=== PATIENT | female | born 1950 ===

== ENCOUNTER 2017-10-14 01:10 | Observation (INO) | payer MEDICARE, BC ==
[2017-10-13 14:52] LABS: INR 0.97
[~2017-10-14] VITALS: Ht 175.3 cm; Wt 83.5 kg
[2017-10-14] VITALS (13 sets, daily range): BP systolic 98–146; BP diastolic 57–80
[~2017-10-14 01:10] MED LIST: BIOT300T6 PO; CALC-488 PO; MAGNESIUM PO; MULT-19; VALA100059 PO; VALA500T63 PO
--- NOTE | 2017-10-14 06:50 | LEVENE H&P ---
DATE OF ADMISSION: October 14, 2017 IDENTIFICATION/CHIEF COMPLAINT The patient is a 66-year-old woman with a chief complaint of left knee pain. HISTORY OF PRESENT ILLNESS The patient has a longstanding history of knee arthritis, progressively painful and debilitating, refractory to conservative care. Surgery is indicated to relieve symptoms after failure of nonoperative measures. PAST MEDICAL HISTORY Notable for generally excellent health. ALLERGIES She has only hay fever allergies, no known drug allergies. CURRENT MEDICATIONS 1. Valacyclovir as needed. 2. Aleve as needed. 3. Multiple vitamins. PAST SURGICAL HISTORY Notable for tubal ligation, tonsillectomy and foot surgery. FAMILY HISTORY Notable for father with cancer, father and two brothers with history of coronary artery disease and myocardial infarction and multiple relatives with arthritis. SOCIAL HISTORY Negative for tobacco and alcohol use. REVIEW OF SYSTEMS Negative. PHYSICAL EXAMINATION GENERAL: This is a well-developed, well-nourished female who appears stated age. HEENT: Normocephalic, atraumatic. NECK: Supple. LUNGS: Clear. HEART: Regular. ABDOMEN: Soft. ORTHOPEDIC EXAMINATION: The left knee has severe crepitus. She has an effusion present, stiff at the end range. Skin is intact. Neurovascular function is intact. Gross stability is good. RADIOGRAPHIC DATA Radiographs demonstrate end-stage arthritis. ASSESSMENT Left knee degenerative joint disease, refractory to conservative care. PLAN Per patient request, we are going to proceed with total knee arthroplasty. Nature of the procedure, risks, benefits, the anticipated rehabilitative course were reviewed. The risks include, but are not limited to, , major medical or anesthetic complication, infection, neurovascular injury, blood transfusion, stiffness, scarring, fracture, tendon rupture, instability, implant loosening, migration or failure, persistent recurrent pain, need for additional surgery, and other unforeseen. She understands and wishes to proceed. Signed permit was placed in the chart, no guarantees given or implied. [place]
[2017-10-14] MEDS: NORMOSOL R SOLN(*) 1000 ML BAG 1,000 ML IV PRN ×2 (09:04→14:23)
[2017-10-14] MEDS ORDERED: LIDOCAINE MPF 1% 5 ML VIAL ONE (09:19)
[2017-10-14] MEDS ORDERED: ONDANSETRON 4 MG/2 ML VIAL ONE (09:19)
[2017-10-14] MEDS ORDERED: PROPOFOL EMUL(*) 10MG/ML 20 ML 20 ML ONE (09:19)
[2017-10-14] MEDS ORDERED: METOCLOPRAMIDE 10 MG/2 ML SDV ONE (09:19)
[2017-10-14] MEDS ORDERED: DEXAMETHASONE SOD 4 MG/ML VIAL ONE (09:20)
[2017-10-14] MEDS ORDERED: ceFAZolin(*) 2GM/D5W 50ML 50 ML IVPB ONE (10:45)
[2017-10-14] MEDS ORDERED: MIDAZOLAM 2 MG/2 ML VIAL IVP PRN (10:45)
[2017-10-14] MEDS ORDERED: cloNIDine EPIDUR INJ 100MCG/ML 40 MCG, ROPIVACAINE 0.5% 20 ML VIAL 25 ML, EPINEPHrine H... INJ ONE (10:45)
[2017-10-14] MEDS ORDERED: TRANEXAMIC AC 1000 MG/10ML SDV 1,000 MG in DEXTROSE 5% 50 ML BAG 50 ML IV ONE (10:45)
[2017-10-14] MEDS ORDERED: LIDOCAINE/SOD BICARB 8.4% SYR ID ONE (10:45)
[2017-10-14] MEDS ORDERED: FAMOTIDINE 20 MG TAB PO ONE (10:45)
[2017-10-14] MEDS ORDERED: MORPHINE PF 5 MG/10 ML AMP ONE (11:46)
[2017-10-14] MEDS ORDERED: fentaNYL CITR 100 MCG/2 ML AMP ONE (11:47)
[2017-10-14] MEDS ORDERED: LACTATED RINGER 3000 ML BAG IR ONE (13:32)
[2017-10-14] MEDS ORDERED: FLUSH 10 ML SYR IVP PRN (14:30)
[2017-10-14] MEDS ORDERED: NORMOSOL R SOLN(*) 1000 ML BAG 1,000 ML IV PRN (14:30)
[2017-10-14] MEDS ORDERED: BENZOCAINE/MENTHOL 1 EACH LOZG PO PRN (14:30)
[2017-10-14] MEDS ORDERED: ACETAMINOPHEN 325 MG TAB PO PRN (14:30)
[2017-10-14] MEDS ORDERED: diphenhydrAMINE 50 MG/ML VIAL IVP PRN (14:30)
[2017-10-14] MEDS ORDERED: MAGNESIUM HYDROXIDE* 30ML UDCP PO PRN (14:30)
[2017-10-14] MEDS ORDERED: ZOLPIDEM TARTRATE 5 MG TAB PO PRN (14:30)
[2017-10-14] MEDS ORDERED: diphenhydrAMINE 25 MG CAP PO PRN ×2 (14:30→14:35)
[2017-10-14] MEDS ORDERED: BISACODYL 10 MG SUPP PR PRN (14:30)
[2017-10-14] MEDS ORDERED: NALOXONE HCL 0.4 MG/ML VIAL IVP PRN ×2 (14:35)
[2017-10-14] MEDS ORDERED: ONDANSETRON 4 MG/2 ML VIAL IVP PRN (14:35)
[2017-10-14] MEDS ORDERED: NALTREXONE HCL 50 MG TAB PO PRN (14:35)
[2017-10-14] MEDS ORDERED: METOCLOPRAMIDE 10 MG/2 ML SDV IVP PRN (14:35)
[2017-10-14] MEDS ORDERED: NALBUPHINE HCL 10 MG/ML AMP IVP PRN (14:35)
--- NOTE | 2017-10-14 14:35 | RADIOLOGY IMAGING REPORT ---
FACILITY: [facility] PATIENT NAME: Jessica Hairston : 1950 MR: [id number] V: [id number] EXAM DATE: ORDERING PHYSICIAN: GUIDO BEARDEN TECHNOLOGIST: Location: [facility] [place] Patient: Jessica Hairston : 1950 Visit/Account:[id number] Date of Sevice: 10/14/2017 Left knee, two views. HISTORY: Left total knee arthroplasty. COMPARISON: None. The articular surfaces of the distal femur, proximal tibia, and patella have been resected and replac ed with prosthetic components. The components have been secured with cement. Alignment is unremarkabl e. Air is present in the soft tissues. Skin clips are present anteriorly. Slight lucencies are pre sent along the femoral component which is probably within normal limits. IMPRESSION: Unremarkable knee replacement. Report Dictated By: Carlos Dill MD at 10/14/2017 2:30 PM Report E-Signed By: Carlos Dill MD at 10/14/2017 2:32 PM WSN:[email or web address]
[2017-10-14] MEDS: PROMETHAZINE 25 MG/ML 1 ML AMP IVP PRN (15:30)
--- NOTE | 2017-10-14 16:50 | Hospitalist Consultation ---
History of Present Illness Requesting Physician Guido Bearden MD Reason for Consult s/p L-TKA and medical management Chief Complaint Nausea, dizziness and cloudiness after surgery History of Present Illness Mrs. Hairston is a 66-year-old woman with a longstanding history of knee arthritis , progressively painful and debilitating, refractory to conservative care. Surgery is indicated to relieve symptoms after failure of nonoperative measures. She underwent L-TKA by Dr. Bearden today. She tolerated the anesthesia and surgical procedure. I was asked to evaluate this patient for her medical problems during this hospital stay. She c/o Nausea, dizziness and cloudiness. She is hemodynamically stable. She denies any other medical condition except Herpes and she takes Voltrex as needed. History Home Meds Reported Medications Valacyclovir Hcl (VALACYCLOVIR) 1,000 Mg Tablet, 1000 MG PO PRN 10/07/17 [Magnesium] No Conflict Check, 1000 TAB PO QDAY 10/07/17 Biotin (BIOTIN) 300 Mcg Tablet, 500 MCG PO QDAY 10/07/17 Calcium Carbonate (CALCIUM CARBONATE) 500 Mg Tablet, 500 MG PO 10/07/17 Multivits-Min/Iron/FA/Lutein (Centrum Silver Women Tablet) 1 Each Tablet, QDAY 10/07/17 Discontinued Reported Medications Valacyclovir Hcl (VALACYCLOVIR) 500 Mg Tablet, 500 MG PO PRN 10/07/17 Allergies: Coded Allergies: grass pollen (Verified Allergy, Unknown, 10/07/17) Patient History: FH: arthritis MOTHER FH: cancer FATHER, Onset:Unknown FH: heart attack BROTHER OR SISTER Hx Smoking: No Smoking Status: Never Smoker Caffeine Intake: Coffee, Soda Caffeine/Cups Per Day: 2 CPD Hx Alcohol Use: No Hx Substance Use Disorder: No Review of Systems Constitutional: Night Sweats, No Fever, No Chills Neurological: No Confusion, No Weakness, No Dizziness Eyes: No Vision Change ENT: No Sinus Congestion, No Sore Throat Cardiovascular: No Chest Pain, No Palpitations Respiratory: No Shortness of Breath, No Cough Gastrointestinal: Nausea, No Vomiting, No Diarrhea, No Constipation, No Abdominal Pain Genitourinary: No Dysuria, No Hematuria Musculoskeletal: Pain, Impaired Mobility, No Sprain, No Strain Psychiatric: No Depression, No Anxiety Exam Vital Signs Vital Signs Date Time Temp Pulse Resp B/P (MAP) Pulse Ox O2 Delivery O2 Flow Rate FiO2 10/14/17 16:00 69 123/72 (89) 98 10/14/17 15:08 Nasal Cannula 2.0 10/14/17 14:58 12 10/14/17 09:01 96.9 General Appearance: Alert, Awake, No Acute Distress, Afebrile Neuro: No Gross deficits Eyes: PERRLA ENT: Normal Cardiovascular: Normal Rhythm & Peripheral Pulses Respiratory: No Respiratory Distress GI: Abd Soft and Non-Tender : Normal Extremities: Other (LLE with tenderness and decrease ROM) Integumentary: Skin Intact without Lesion / Mass Psych: Alert & Oriented X3, Appropriate Mood & Affect Medical Decision Making Pre-Admit Course Medical Record Review: Yes Assessment and Plan Problems: (1) Nausea Status: Acute Assessment & Plan: Post op nausea and dizziness I will use antiemetic to control her nausea (2) S/P total knee arthroplasty Status: Acute Assessment & Plan: Management per surgery and PT ROM exercises Aspirin 325mg po qd for DVTP Central Venous Access Medical Necessity for Access: IV Access Time Spent on Plan of Care: < 30 min Copies to: GUIDO BEARDEN MD Venous Thromboembolism VTE Risk Physician Assess for VTE Risk: Yes Patient's VTE Risk: Low VTE Diagnostic Test 2 Days Prior to Admit: No Antithrombotics Is Pt On Any Antithrombotics?: No Problem Qualifiers (1) S/P total knee arthroplasty: Laterality: left Qualified Codes: Z96.652 - Presence of left artificial knee joint PANKAJ CABA MD Oct 14, 2017 16:50
[2017-10-14] MEDS: CELECOXIB 200 MG CAP PO SCH (17:08)
[2017-10-14] MEDS: ceFAZolin 1 GM VIAL IVP SCH (19:53)
--- NOTE | 2017-10-14 21:30 | OPERATIVE REPORT 1 ---
EVENT DATE: October 14, 2017 SURGEON: Balbir Gonzales MD ANESTHESIOLOGIST: Edin Neal MD ANESTHESIA: General plus spinal. GRADING SUPERVISOR: BARBARA Kaye PREOPERATIVE DIAGNOSIS Left knee degenerative joint disease. POSTOPERATIVE DIAGNOSIS Left knee degenerative joint disease. PROCEDURE PERFORMED Left total knee arthroplasty. ESTIMATED BLOOD LOSS Minimal. DRAINS None. SPECIMENS None. COMPLICATIONS None apparent. TOURNIQUET TIME 45 minutes. IMPLANTS USED [employer] knee system, a 4 left PS femur, a 5 standard tibial baseplate , a 33 mm universal cemented all-polyethylene patellar button, and an 11 mm PF tibial tray insert, and polyethylene X3 INDICATIONS Jessica has intractable pain and disability related to end-stage knee arthritis. Surgery is indicated to relieve symptoms after failure of nonoperative measures. DESCRIPTION OF PROCEDURE The patient was taken to the operating room. She was placed supine on the operating table. A spinal block was administered by the anesthesiologist. General anesthesia was induced. Antibiotics and TXA were administered IV. The left lower extremity was prepped and draped in the usual sterile fashion for orthopedic surgery. The limb was exsanguinated with an Esmarch bandage. The tourniquet was inflated to 250 mmHg. A midline longitudinal incision was made and carried down through the skin and subcutaneous tissue to the extensor mechanism. A full-thickness flap was developed far enough medially to allow a medial parapatellar arthrotomy be performed. The patella was everted, and the knee was brought into the flexed position. The fat pad, the anterior horn to the menisci, and the cruciate ligaments were debrided. A subperiosteal capsular release was performed circumferentially 1 cm around the upper plateau. A step drill was used to enter the distal femur. A 10-inch long alignment guide was used to engage the isthmus. The cut was set for 6 degrees of valgus relative to the anatomic axis. The 10 mm resection block was applied and pinned. Cuts were made on the distal femur with an oscillating saw. The AP resection guide was applied to the distal femoral cut and positioned for 3 degrees of external rotation relative to the posterior condyles. A size 4 was optimal without risk of notching. The four-in-one cutting block was applied. Anterior, posterior, posterior chamfer, and anterior chamfer cuts were made respectively. The PS block was applied and centered. Medial and lateral bone was removed from the box. The trial femur had nice [id number] fit. Attention was turned to the tibial preparation. The extramedullary alignment guide was applied and positioned for varus, valgus, posterior slope, and rotation. This was set to resect 9 mm from the relatively intact lateral tibial plateau. It was dropped another millimeter to assure an adequate cut. The block was pinned. Extramedullary alignment check was made. The cut was made with an oscillating saw. Gaps were balanced and symmetric with no additional releases required. The size 5 tibial baseplate provided optimum bony coverage without soft tissue overhang. It was inserted along with a trial liner and a trial femur. The knee was brought to full extension. The patella was everted to confirm a starting thickness of 20 to a residual 14 with a patellar clamp and an oscillating saw. A 33 provided optimal bony coverage without soft tissue overhang. Lug holes were drilled. The patella tracked nicely with the no-touch technique. Final tibial preparation consisted of assuring appropriate rotational and translational position of the component. The box was reamed, the fin was punched, and the surfaces were copiously lavaged. A pain cocktail was infiltrated throughout the wound. A bone block was placed in the femoral tunnel. Mixed polymethyl methacrylate was made, and the components were cemented in a single stage. When the cement was fully polymerized, the tourniquet was deflated. Hemostasis was assured. The wound was copiously lavaged. All loose debris was removed. The 11 PS tibial tray liner filled up the gap ideally, allowing the knee to drop to full extension without hyperextension, providing optimal soft tissue tension and stability. This was locked into the baseplate. The joint was reduced. The arthrotomy was closed with in flexion with #2 Ethibond, the subcutaneous tissue with 3-0 Vicryl , and the skin with surgical ramesh with Xeroform and 4 x 4's in a dry, sterile dressing and compression wrap. The patient was awakened from anesthesia and taken to the recovery room in stable condition having tolerated the procedure well. The plan is for standard TKA rehab protocol. [facility]
[2017-10-15] VITALS: BP 98/58
[2017-10-15 01:00] VITALS: BP 99/56
[2017-10-15] MEDS: ceFAZolin 1 GM VIAL IVP SCH ×2 (03:50→12:09)
[2017-10-15] MEDS: APAP/HYDROCODONE 325/7.5 TAB PO PRN ×5 (07:12→22:42)
[2017-10-15] MEDS: CELECOXIB 200 MG CAP PO SCH ×2 (08:09→17:30)
[2017-10-15] MEDS: ASPIRIN 325 MG TAB PO SCH (08:09)
[2017-10-15 08:16] VITALS: BP 122/74
[2017-10-15 09:19] VITALS: BMI 27.2
[2017-10-15 11:14] VITALS: BP 118/66
--- NOTE | 2017-10-15 14:21 | Hospitalist Progress Note ---
Subjective Progress Notes Subjective She denies any problems. Physical Exam Vital Signs Date Time Temp Pulse Resp B/P (MAP) Pulse Ox O2 Delivery O2 Flow Rate FiO2 10/15/17 12:11 93 10/15/17 11:14 98.2 64 16 118/66 (83) Room Air 10/15/17 07:12 0.5 Intake and Output 10/16/17 07:01 Intake Total 360 ml Balance 360 ml Intake Oral 360 ml General Appearance: Alert, Awake Cardiovascular: Regular Rate and Rhythm Respiratory: Clear to Auscultation Assessment and Plan Problems: (1) Nausea Status: Acute Assessment & Plan: Post-op nausea has now resolved. Watch for any recurrent problems. (2) S/P total knee arthroplasty Status: Acute Assessment & Plan: Management per orthopedics. Aspirin 325mg po qd for DVT prophylaxis. Central Venous Access Medical Necessity for Access: IV Access Exam Sepsis Risk: No Definite Risk Problem Qualifiers (1) S/P total knee arthroplasty: Laterality: left Qualified Codes: Z96.652 - Presence of left artificial knee joint DIXON BUSTAMANTE MD Oct 15, 2017 14:21
[2017-10-15 15:37] VITALS: BP 114/69
[2017-10-15] MEDS: DIAZEPAM 5 MG TAB PO PRN (17:30)
[2017-10-15 19:09] VITALS: BP 108/63
[2017-10-15] MEDS ORDERED: MORPHINE 2 MG/ML SYR IVP PRN (20:30)
[2017-10-15] MEDS ORDERED: KETOROLAC 15 MG/ML VIAL IVP ONE (20:30)
[2017-10-16 02:33] VITALS: BP 115/58
[2017-10-16] MEDS: APAP/HYDROCODONE 325/7.5 TAB PO PRN ×4 (04:54→20:27)
[2017-10-16 08:25] VITALS: BP 116/95
[2017-10-16] MEDS: ASPIRIN 325 MG TAB PO SCH (08:26)
[2017-10-16] MEDS: CELECOXIB 200 MG CAP PO SCH ×2 (08:26→16:43)
[2017-10-16 11:15] VITALS: BP 133/72
[2017-10-16] MEDS: DIAZEPAM 5 MG TAB PO PRN ×2 (14:02→20:26)
--- NOTE | 2017-10-16 14:17 | Hospitalist Progress Note ---
Subjective Progress Notes Subjective Mrs. Hairston is a 66-year-old woman with a longstanding history of knee arthritis , progressively painful and debilitating, refractory to conservative care. Surgery is indicated to relieve symptoms after failure of nonoperative measures. She underwent L-TKA by Dr. Bearden today. She tolerated the anesthesia and surgical procedure. I was asked to evaluate this patient for her medical problems during this hospital stay. She c/o Nausea, dizziness and cloudiness. She is hemodynamically stable. She denies any other medical condition except Herpes and she takes Voltrex as needed. Patient Complains of: Neurological: Weakness, No: Confusion, Dizziness Cardiovascular: No: Chest Pain, Palpitations Respiratory: No: Cough, Congestion, Shortness of Breath Gastrointestinal: No Nausea, No Vomiting Genitourinary: No Dysuria, No Hematuria Musculoskeletal: Pain, No: Sprain, Strain, Impaired Mobility Physical Exam Vital Signs Date Time Temp Pulse Resp B/P (MAP) Pulse Ox O2 Delivery O2 Flow Rate FiO2 10/16/17 11:15 98.0 77 16 133/72 (92) 95 Nasal Cannula 0.5 Intake and Output 10/17/17 07:00 Intake Total 0 ml Balance 0 ml Intake Oral 0 ml # Voids 3 General Appearance: Alert, Awake, No Acute Distress, Afebrile Neuro: No Gross deficits Eyes: PERRLA ENT: Normal Cardiovascular: Regular Rate and Rhythm Respiratory: No Respiratory Distress GI: Soft and Non-Tender Integumentary: Skin Intact without Lesion / Mass Psych: Alert & Oriented X3, Appropriate Mood & Affect Assessment and Plan Problems: (1) Nausea Status: Acute Assessment & Plan: Post-op nausea has now resolved. Watch for any recurrent problems. 2/1: She is medically stable (2) S/P total knee arthroplasty Status: Acute Assessment & Plan: Management per orthopedics. Aspirin 325mg po qd for DVT prophylaxis. 2/1: Management as per surgery and PT. Anticipated d/c in am Central Venous Access Medical Necessity for Access: IV Access Time Spent on Plan of Care: < 30 min Copies to: GUIDO BEARDEN MD Exam Sepsis Risk: No Definite Risk Problem Qualifiers (1) S/P total knee arthroplasty: Laterality: left Qualified Codes: Z96.652 - Presence of left artificial knee joint PANKAJ CABA MD Oct 16, 2017 14:17
[2017-10-16 15:03] VITALS: BP 129/75
[2017-10-16 20:21] VITALS: BP 135/84
[2017-10-16] MEDS: PROMETHAZINE 25 MG/ML 1 ML AMP IVP PRN (20:31)
[2017-10-17 00:03] VITALS: BP 121/60
[2017-10-17] MEDS: APAP/HYDROCODONE 325/7.5 TAB PO PRN (02:35)
[2017-10-17 03:19] VITALS: BP 129/66
[2017-10-17 07:16] VITALS: BP 138/68
[2017-10-17] MEDS ORDERED: ONDA4TAB PO (07:36)
[2017-10-17] MEDS ORDERED: HYDR-4308 PO (07:37)
[2017-10-17] MEDS ORDERED: ASPI-757 PO (07:39)
[2017-10-17] MEDS: ASPIRIN 325 MG TAB PO SCH (08:38)
[2017-10-17] MEDS: CELECOXIB 200 MG CAP PO SCH (08:38)
[2017-10-17] MEDS ORDERED: ONDANSETRON 4 MG ODT TABDP SL ONE (10:20)
[2017-10-17 10:39] VITALS: Ht 175.3 cm; Wt 83.5 kg
--- NOTE | 2017-10-17 16:29 | Hospitalist Progress Note ---
Subjective Progress Notes Subjective Mrs. Hairston is a 66-year-old woman with a longstanding history of knee arthritis , progressively painful and debilitating, refractory to conservative care. Surgery is indicated to relieve symptoms after failure of nonoperative measures. She underwent L-TKA by Dr. Bearden today. She tolerated the anesthesia and surgical procedure. I was asked to evaluate this patient for her medical problems during this hospital stay. She c/o Nausea, dizziness and cloudiness. She is hemodynamically stable. She denies any other medical condition except Herpes and she takes Voltrex as needed. 10/17: She is afebrile, hemodynamically and medically stable to go home today and she is cleared by surgery. Patient Complains of: Neurological: No: Weakness Cardiovascular: No: Chest Pain Respiratory: No: Cough, Shortness of Breath Gastrointestinal: No Nausea, No Vomiting Genitourinary: No Dysuria, No Hematuria Musculoskeletal: No: Pain Physical Exam Vital Signs Date Time Temp Pulse Resp B/P (MAP) Pulse Ox O2 Delivery O2 Flow Rate FiO2 10/17/17 08:02 92 10/17/17 07:20 Room Air 10/17/17 07:16 98.2 69 18 138/68 (91) 10/17/17 03:19 0.5 Intake and Output 10/18/17 07:00 Intake Total 80 ml Balance 80 ml Intake Oral 80 ml # Voids 1 General Appearance: Alert, Awake, No Acute Distress, Afebrile Neuro: No Gross deficits Eyes: PERRLA ENT: Normal Cardiovascular: Regular Rate and Rhythm Respiratory: No Respiratory Distress GI: Soft and Non-Tender Extremities: Other (L-knee with decrease ROM) Psych: Alert & Oriented X3, Appropriate Mood & Affect Assessment and Plan Problems: (1) Nausea Status: Chronic Assessment & Plan: Post-op nausea has now resolved. Watch for any recurrent problems. 10/16: She is medically stable 10/17: D/C plan today (2) S/P total knee arthroplasty Status: Acute Assessment & Plan: Management per orthopedics. Aspirin 325mg po qd for DVT prophylaxis. 10/16: Management as per surgery and PT. Anticipated d/c in am 10/17: She is being d/c'd today and f/u with Dr. Bearden Central Venous Access Medical Necessity for Access: IV Access Time Spent on Plan of Care: < 30 min Copies to: GUIDO BEARDEN MD Exam Sepsis Risk: No Definite Risk Problem Qualifiers (1) S/P total knee arthroplasty: Laterality: left Qualified Codes: Z96.652 - Presence of left artificial knee joint PANKAJ CABA MD Oct 17, 2017 16:29
== END 2017-10-17 08:21 | disposition home health service (06) ==
LOC: OR 01:10 → MED 14:58 → INTOOBSV 14:58
PROVIDERS: ADMIT Orthopaedic Surgery; ATTEND Orthopaedic Surgery
DX: M17.12 Unilateral primary osteoarthritis, left knee (principal); E78.5 Hyperlipidemia, unspecified; I10 Essential (primary) hypertension
CPT/HCPCS: 27447; 36415; 73560; 85610; 86850; 86900; 86901; 96372; 97116; 97161; 97530; A9270; C1713; C1776; G0378; J0171; J0690; J0735; J1100; J1885; J2001; J2250; J2405; J2550; J2704; J2765; J2795; J3010; J7050; J7060; Q0163; J2270

== ENCOUNTER 2018-12-08 01:43 | Observation (INO) | payer MEDICARE, BC ==
--- NOTE | 2018-11-23 09:47 | NUR ---
LAN FROM JAIRO AT [facility], WOULD LIKE SCOPOLAMINE PATCH CALLED IN FOR THIS PT. CALLED INTO [facility] IN [place] UNDER DR. BEARDEN PER JAIRO'S INSTRUCTIONS.
--- NOTE | 2018-12-07 13:57 | LEVENE H&P ---
DATE OF ADMISSION: December 08, 2018 IDENTIFICATION/CHIEF COMPLAINT The patient is a 68-year-old woman with a chief complaint of right knee pain. HISTORY OF PRESENT ILLNESS Patient has a longstanding history of arthritis progressively painful and debilitating and refractor to conservative care. Surgery is indicated to relieve symptoms after failure of nonoperative measures. PAST MEDICAL HISTORY Notable for generally good health. PAST SURGICAL HISTORY 1. Contralateral knee replacement. 2. Tubal ligation. 3. Tonsillectomy. ALLERGIES She has multiple environmental allergens but no drug allergies. CURRENT MEDICATIONS 1. Vitamins. 2. Valtrex as needed for cold sores. FAMILY HISTORY Notable for father with heart disease and cancer. Mother and sister with arthritis. SOCIAL HISTORY Negative for tobacco and alcohol use. REVIEW OF SYSTEMS Notable for migraine headaches. PHYSICAL EXAMINATION GENERAL: Healthy female. HEENT: Normocephalic, atraumatic. NECK: Supple. LUNGS: Clear. HEART: Regular. ABDOMEN: Soft. ORTHOPEDIC EXAMINATION Right knee has an effusion present, stiffened on range. Crepitus is noted. Extensor function is intact. Gross stability is good. Skin is intact. Neurovascular function is intact distally. Radiographs demonstrate end-stage lateral compartment degenerative joint disease. ASSESSMENT Right knee degenerative joint disease progressively painful and debilitating and refractory to conservative care. PLAN Per patient request, we will proceed with total knee arthroplasty. The nature of this procedure, the risks, benefits, the anticipated rehabilitative course were reviewed. Risks include but are not limited to , major medical or anesthetic complication, infection, neurovascular injury, blood transfusion, stiffness, scarring, fracture, tendon rupture, instability, implant loosening, migration or failure, persistent or recurrent pain or symptoms, need for additional surgery and other unforeseen. She understands and wishes to proceed. A signed permit is placed in the chart. No guarantees are given or implied. [facility]ITALAam[facility]
[2018-12-07 15:02] LABS: INR 0.98
[~2018-12-08] VITALS: Ht 176.5 cm; Wt 84.8 kg
[2018-12-08] VITALS (12 sets, daily range): BP systolic 99–148; BP diastolic 60–95
[~2018-12-08 01:43] MED LIST changes: +ACETAMINOPHEN 500 MG TAB PO ONE; +ASPI-757 PO; +CELECOXIB 200 MG CAP PO ONE; +HYDR-654 PO; +ONDA4TAB PO; +PREGABALIN 75 MG CAPSULE PO ONE; +SCOP1PAT16
[2018-12-08] MEDS ORDERED: VANCOMYCIN 1 GM VIAL ONE (07:12)
[2018-12-08] MEDS ORDERED: CELECOXIB 200 MG CAP PO ONE (07:20)
[2018-12-08] MEDS ORDERED: PREGABALIN 75 MG CAPSULE PO ONE (07:20)
[2018-12-08] MEDS ORDERED: ACETAMINOPHEN 500 MG TAB PO ONE (07:20)
[2018-12-08] MEDS ORDERED: APREPITANT 40 MG CAP PO ONE (09:50)
[2018-12-08] MEDS ORDERED: ceFAZolin(*) 2GM/D5W 50ML 50 ML IVPB ONE (10:00)
[2018-12-08] MEDS ORDERED: MIDAZOLAM 2 MG/2 ML VIAL IVP PRN (10:00)
[2018-12-08] MEDS ORDERED: NORMOSOL R SOLN(*) 1000 ML BAG 1,000 ML IV PRN ×2 (10:00→15:40)
[2018-12-08] MEDS ORDERED: FAMOTIDINE 20 MG TAB PO ONE (10:00)
[2018-12-08] MEDS ORDERED: ceFAZolin(*) 1 GM VIAL 1 GM in NS(*) 0.9% 100 ML ADDVANT BAG 100 ML IVPB ONE (10:00)
[2018-12-08] MEDS ORDERED: LIDOCAINE/SOD BICARB 8.4% SYR ID ONE (10:00)
[2018-12-08] MEDS ORDERED: fentaNYL CITR 100 MCG/2 ML AMP ONE ×2 (10:03→14:25)
[2018-12-08] MEDS ORDERED: ONDANSETRON 4 MG/2 ML VIAL ONE (10:04)
[2018-12-08] MEDS ORDERED: LIDOCAINE MPF 1% 5 ML VIAL ONE (10:04)
[2018-12-08] MEDS ORDERED: PROPOFOL EMUL(*) 10MG/ML 20 ML 20 ML ONE ×2 (10:04→13:43)
[2018-12-08] MEDS ORDERED: DEXAMETHASONE SOD 4 MG/ML VIAL ONE (10:04)
[2018-12-08] MEDS ORDERED: KETAMINE HCL 200 MG/20 ML MDV ONE (10:06)
[2018-12-08] MEDS ORDERED: TRANEXAMIC AC 1000 MG/10ML SDV 1,000 MG in DEXTROSE 5% 50 ML BAG 50 ML IV ONE (11:15)
[2018-12-08] MEDS ORDERED: ROPIVACAINE/EPI/CLONIDINE/KET 50 ML SYRINGE INJ ONE (11:15)
[2018-12-08] MEDS ORDERED: PROPOFOL EMUL(*) 10MG/ML 20 ML 60 ML ONE (11:48)
[2018-12-08] MEDS ORDERED: ACETAMINOPHEN 325 MG TAB PO PRN (15:40)
[2018-12-08] MEDS ORDERED: BISACODYL 10 MG SUPP PR PRN (15:40)
[2018-12-08] MEDS ORDERED: diphenhydrAMINE 50 MG/ML VIAL IVP PRN (15:40)
[2018-12-08] MEDS ORDERED: MAGNESIUM HYDROXIDE* 30ML UDCP PO PRN (15:40)
[2018-12-08] MEDS ORDERED: diphenhydrAMINE 25 MG CAP PO PRN (15:40)
[2018-12-08] MEDS ORDERED: BENZOCAINE/MENTHOL 1 EACH LOZG PO PRN (15:40)
[2018-12-08] MEDS ORDERED: FLUSH 10 ML SYR IVP PRN (15:40)
[2018-12-08] MEDS ORDERED: ZOLPIDEM TARTRATE 5 MG TAB PO PRN (15:40)
[2018-12-08] MEDS ORDERED: PROMETHAZINE 25 MG/ML 1 ML AMP IVP PRN (15:40)
--- NOTE | 2018-12-08 15:46 | RADIOLOGY IMAGING REPORT ---
FACILITY: [facility] - [place] PATIENT NAME: Jessica Hairston : 1950 MR: [id number] V: [id number] EXAM DATE: ORDERING PHYSICIAN: GUIDO BEARDEN TECHNOLOGIST: Location: [facility] Patient: Jessica Hairston : 1950 Visit/Account:[id number] Date of Sevice: 12/08/2018 Right knee Indication: Right total knee arthroplasty Comparison: None available Findings: Two views demonstrate anatomic alignment status post right knee arthroplasty. Expected soft tissue c hanges. IMPRESSION: 1. Expected postoperative appearance status post right total knee arthroplasty Report Dictated By: Camden Cooper MD at 12/08/2018 3:40 PM Report E-Signed By: Camden Cooper MD at 12/08/2018 3:41 PM WSN:[email or web address]
--- NOTE | 2018-12-08 16:06 | OPERATIVE REPORT 1 ---
EVENT DATE: December 08, 2018 SURGEON: Balbir Gonzales MD ANESTHESIOLOGIST: Santy Blakely MD ANESTHESIA: General plus spinal. EYE CLINIC MANAGER: Moshe Woody PA-C PREOPERATIVE DIAGNOSIS Right knee degenerative joint disease. POSTOPERATIVE DIAGNOSIS Right knee degenerative joint disease. PROCEDURE PERFORMED Right total knee arthroplasty. ESTIMATED BLOOD LOSS Minimal. DRAINS None. SPECIMENS None. COMPLICATIONS None apparent. TOURNIQUET TIME 44 minutes. IMPLANTS USED Habboathlon knee system with 4 right PS femur, 4 standard tibial baseplate, 33 mm universal, symmetric, all-polyethylene patellar button, 11 mm PS tibial tray liner. Polyethylene is X3. INDICATIONS Jessica has intractable pain and disability related to end-stage knee arthritis. Surgery is indicated to relieve symptoms after failure of nonoperative measures. DESCRIPTION OF PROCEDURE Patient is taken to the operating room and placed supine on the operating table. General anesthesia is induced after spinal block is administered by the anesthesiologist. Antibiotics and TXA are administered IV. Right lower extremity is prepped and draped in the usual sterile fashion for orthopedic surgery. Limb is exsanguinated with an Esmarch bandage. Tourniquet is inflated to 250 mmHg. Midline longitudinal incision is made, carried down through the skin and subcutaneous tissue to the extensor mechanism. Full-thickness flaps are developed far enough medially to allow medial parapatellar arthrotomy be performed. Patella is everted. Knee is brought into flexed position. Fat pad, anterior horns of the menisci, and the cruciate ligaments are debrided. Subperiosteal capsule release is performed 1 cm around the upper plateau to start to balance the knee. A step drill is used to enter the distal femur. The 10-inch long alignment guide is used to engage the isthmus, cut set for 6 degrees of valgus relative to the anatomic axis. The 10 mm resection block is applied, pinned, and cuts made with an oscillating saw. AP sizing guide is applied to the distal femur, positioned for 3 degrees of external rotation relative to the posterior condyles. Although the knee is valgus, there is no hypoplasia of the lateral condyle. The size 4 is optimal without risk of notching. The four-in-one cutting block is applied. Anterior, posterior, posterior chamfer, and anterior chamfer cuts are made respectively. PS block is applied and centered. Medial and lateral bone is removed from the box. Trial femur has nice [id number] fit. Attention is turned to tibial preparation. The extramedullary guide is applied, positioned for varus, valgus, posterior slope, and rotation. This is set to resect 2 mm from the relatively deficient lateral tibial plateau. It is dropped down another millimeter or so to assure an adequate cut. Block is pinned. Extramedullary alignment check is made. Cuts made with an oscillating saw. At this point, the gaps are balanced and symmetric with no additional releases required. The size 4 tibial baseplate provides optimal bony coverage without soft tissue overhang. This is inserted along with the trial liner and trial femur. Knee is brought to extension. Patella is taken from a starting thickness of 22 mm to a residual of 14 with a patellar clamp and oscillating saw. The 33 provides optimal bony coverage without soft tissue overhang. Lug holes are drilled. Patella tracks nicely with the no-touch technique. Final tibial preparation consists of assuring appropriate rotational and translational position of the component. Boss is reamed. Fin is punched. Surface is lavaged. A mix of methacrylate is made and all components cemented in a single stage. Once the cement is fully polymerized, tourniquet is deflated. Hemostasis is assured. The 11 PS tibial tray liner trial fills up the gap ideally, allowing the knee to drop to full extension without hyperextension, providing optimal soft tissue tension and stability. Trial is removed. Surfaces are lavaged. Meticulous hemostasis is assured, and the actual liner is locked into the baseplate. Joint is reduced. Arthrotomy is closed in flexion with #2 Ethibond, subcutaneous tissue with 3-0 Vicryl, and the skin with ZipLine. Xeroform is applied for a dry, sterile dressing and compression wrap. Patient is awakened from anesthesia and taken to the recovery room informed consent having tolerated the procedure well. PLAN Plan is for standard TKA rehab protocol. [facility]
[2018-12-08] MEDS: APAP/HYDROCODONE 325/7.5 TAB PO PRN ×3 (16:21→21:53)
[2018-12-08] MEDS: CELECOXIB 200 MG CAP PO SCH (16:59)
--- NOTE | 2018-12-08 17:14 | Hospitalist Consultation ---
History of Present Illness Requesting Physician Dr. Gonzales Reason for Consult Medical Management Chief Complaint s/p right knee replacement History of Present Illness She was admitted s/p right knee replacement. It is reported the surgery went well and without complication. History Home Meds Reported Medications Scopolamine (Scopolamine) 1 Mg/3 Day Patch.td.3 11/23/18 Aspirin (ASPIRIN) 325 Mg Tablet, 325 MG PO QDAY, TAB take daily for one month to prevent blood clots postoperatively 10/17/17 Valacyclovir Hcl (VALACYCLOVIR) 1,000 Mg Tablet, 1000 MG PO PRN 10/07/17 [Magnesium] No Conflict Check, 1000 TAB PO QDAY 10/07/17 Biotin (BIOTIN) 300 Mcg Tablet, 500 MCG PO QDAY 10/07/17 Calcium Carbonate (CALCIUM CARBONATE) 500 Mg Tablet, 500 MG PO 10/07/17 Multivits-Min/Iron/FA/Lutein (Centrum Silver Women Tablet) 1 Each Tablet, QDAY 10/07/17 Discontinued Reported Medications Hydrocodone Bit/Acetaminophen (NORCO 7.5-325 TABLET) 1 Each Tablet, 1-2 TAB PO Q4-6H PRN for PAIN, #80 10/17/17 Ondansetron (ZOFRAN ODT) 4 Mg Tab.rapdis, 4 MG PO Q6H PRN for NAUSEA, #30 TAB.OTIS 10/17/17 Allergies: Coded Allergies: grass pollen (Verified Allergy, Unknown, 12/02/18) Patient History: FH: arthritis MOTHER FH: cancer FATHER, Onset:Unknown FH: heart attack BROTHER OR SISTER Hx Smoking: No Smoking Status: Never Smoker Exposure to Second Hand Smoke?: No Caffeine Intake: Coffee, Soda Caffeine/Cups Per Day: 2 per day Hx Alcohol Use: No Hx Substance Use Disorder: No Social Drug Use: Never History of IV Drug Use: No Review of Systems All Systems Reviewed/Normal: Yes, Except as Noted Exam Vital Signs Vital Signs Date Time Temp Pulse Resp B/P (MAP) Pulse Ox O2 Delivery O2 Flow Rate FiO2 12/08/18 16:00 59 18 98 12/08/18 15:58 97.6 116/75 (89) Nasal Cannula 2.0 General Appearance: Alert, Awake, No Acute Distress, Afebrile Neuro: No Gross deficits Cardiovascular: Regular Rate and Rhythm Respiratory: No Respiratory Distress, Clear to Auscultation GI: Abd Soft and Non-Tender Psych: Alert & Oriented X3, Appropriate Mood & Affect Assessment and Plan Problems: (1) S/P total knee arthroplasty Status: Acute Assessment & Plan: Followed by Dr. Gonzales. She will be placed on Aspirin for DVT prophylaxis. She has no medical problems. Hospitalist service will follow for any medical needs. Central Venous Access Medical Necessity for Access: IV Access Venous Thromboembolism Antithrombotics Is Pt On Any Antithrombotics?: No Problem Qualifiers (1) S/P total knee arthroplasty: Laterality: right Qualified Codes: Z96.651 - Presence of right artificial knee joint VELVET WHALEN [employer] Dec 08, 2018 17:14
--- NOTE | 2018-12-08 18:10 | NUR ---
Physical Therapy Impression PT kaileeal completed. Pt noted to be incontinent due to spinal upon standing. Pt tolerated pivot transfer to [facility] to finish voiding, have a sponge bath and change clothing while seated. Pt then requested to amb to/from doorway and demos good step-to pattern with FWW and CGA Physical Therapy Goals 1. Pt to be Min/CGA for bed mobility and supine<>Sit trnsfrs 2. Pt to be SBA/Modified indep for sit to/from stand transfers 3. Pt to ambulate 150' FWW and SBA/modified indep 4. Pt to garrett up/down platform step with FWW or rail and CGA/SBA Patient's Goals
[2018-12-08] MEDS ORDERED: NS(*) 0.9% 500 ML BAG 500 ML ONE (21:06)
[2018-12-08] MEDS: ceFAZolin(*) 1 GM VIAL 1 GM in NS(*) 0.9% 100 ML ADDVANT BAG 100 ML IVPB SCH (21:07)
[2018-12-08] MEDS: DOCUSATE SODIUM 100 MG CAP PO SCH (21:53)
[2018-12-09] VITALS: BP 99/53
[2018-12-09] MEDS: APAP/HYDROCODONE 325/7.5 TAB PO PRN ×5 (02:43→23:29)
[2018-12-09 04:00] VITALS: BP 103/59
[2018-12-09] MEDS: ceFAZolin(*) 1 GM VIAL 1 GM in NS(*) 0.9% 100 ML ADDVANT BAG 100 ML IVPB SCH ×2 (04:13→11:46)
[2018-12-09 07:17] VITALS: BP 126/85
[2018-12-09] MEDS: ASPIRIN 325 MG TAB PO SCH (08:41)
[2018-12-09] MEDS: DOCUSATE SODIUM 100 MG CAP PO SCH ×2 (08:41→20:20)
[2018-12-09] MEDS: CELECOXIB 200 MG CAP PO SCH ×2 (08:41→17:06)
[2018-12-09] MEDS: POLYETHYLENE GLYCOL 17 GM PKT PO SCH (09:49)
[2018-12-09 11:36] VITALS: BP 117/63
--- NOTE | 2018-12-09 12:14 | Hospitalist Progress Note ---
Subjective Progress Notes Subjective She was admitted s/p knee replacement. She has no complaints this morning. She had no acute events overnight. Patient Complains of: Cardiovascular: No: Chest Pain Respiratory: No: Shortness of Breath Physical Exam Vital Signs Date Time Temp Pulse Resp B/P (MAP) Pulse Ox O2 Delivery O2 Flow Rate FiO2 12/09/18 11:36 98.1 54 14 117/63 (81) 95 Room Air 12/09/18 04:00 0.5 Intake and Output 12/09/18 01:00 Intake Total 4490 ml Output Total 21 ml Balance 4469 ml Intake Oral 840 ml IV Total 3650 ml Output Urine/Stool Mix 1 ml Estimated Blood Loss 20 ml # Voids 3 General Appearance: Alert, Awake, No Acute Distress, Afebrile Neuro: No Gross deficits Cardiovascular: Regular Rate and Rhythm Respiratory: No Respiratory Distress, Clear to Auscultation GI: Soft and Non-Tender Psych: Alert & Oriented X3, Appropriate Mood & Affect Assessment and Plan Problems: (1) S/P total knee arthroplasty Status: Acute Assessment & Plan: Followed by Dr. Gonzales. She will be placed on Aspirin for DVT prophylaxis. She has no medical problems. Hospitalist service will follow for any medical needs. Will add Miralax today for constipation. Central Venous Access Medical Necessity for Access: IV Access Exam Sepsis Risk: No Definite Risk Problem Qualifiers (1) S/P total knee arthroplasty: Laterality: right Qualified Codes: Z96.651 - Presence of right artificial knee joint VELVET WHALEN Dec 09, 2018 12:14
[2018-12-09] MEDS: DIAZEPAM 5 MG TAB PO PRN (14:01)
[2018-12-09 14:17] VITALS: Ht 176.5 cm; Wt 84.8 kg
[2018-12-09 15:50] VITALS: BP 137/63
--- NOTE | 2018-12-09 15:53 | NUR ---
Physical Therapy Impression Pt has met distance ambulation goal and has completed platform step. Pt's primary c/o chronic low back pain radiating into R) buttocks. SBAR with nursing to convey this and request a K-pad for heat at low back to address this conservatively if approved by MD. Physical Therapy Goals 1. Pt to be Min/CGA for bed mobility and supine<>Sit trnsfrs 2. Pt to be SBA/Modified indep for sit to/from stand transfers 3. Pt to ambulate 150' FWW and SBA/modified indep 4. Pt to garrett up/down platform step with FWW or rail and CGA/SBA Patient's Goals
[2018-12-09 20:04] VITALS: BP 111/70
[2018-12-10 00:55] VITALS: BP 119/65
[2018-12-10] MEDS: APAP/HYDROCODONE 325/7.5 TAB PO PRN ×3 (03:33→13:31)
[2018-12-10 03:42] VITALS: BP 135/94
[2018-12-10] MEDS ORDERED: HYDR-654 PO (07:38)
[2018-12-10 08:14] VITALS: BP 126/60
[2018-12-10] MEDS: CELECOXIB 200 MG CAP PO SCH (08:41)
[2018-12-10] MEDS: ASPIRIN 325 MG TAB PO SCH (09:06)
[2018-12-10] MEDS: DOCUSATE SODIUM 100 MG CAP PO SCH (09:06)
[2018-12-10] MEDS: POLYETHYLENE GLYCOL 17 GM PKT PO SCH (09:06)
--- NOTE | 2018-12-10 10:18 | Hospitalist Progress Note ---
Subjective Progress Notes Subjective She was admitted s/p knee replacement. She has no complaints this morning. She would like to go home today. Patient Complains of: Cardiovascular: No: Chest Pain Respiratory: No: Shortness of Breath Physical Exam Vital Signs Date Time Temp Pulse Resp B/P (MAP) Pulse Ox O2 Delivery O2 Flow Rate FiO2 12/10/18 09:04 95 12/10/18 08:14 97.9 75 126/60 (82) Nasal Cannula 1.0 12/09/18 20:04 16 Intake and Output 12/10/18 07:00 Intake Total 714 ml Balance 714 ml Intake Oral 600 ml IV Total 114 ml # Voids 2 General Appearance: Alert, Awake, No Acute Distress, Afebrile Neuro: No Gross deficits Cardiovascular: Regular Rate and Rhythm Respiratory: No Respiratory Distress, Clear to Auscultation GI: Soft and Non-Tender Psych: Alert & Oriented X3, Appropriate Mood & Affect Assessment and Plan Problems: (1) S/P total knee arthroplasty Status: Acute Assessment & Plan: Followed by Dr. Gonzales. She will be placed on Aspirin for DVT prophylaxis. She has no medical problems. Hospitalist service will follow for any medical needs. Will add Miralax for constipation. Central Venous Access Medical Necessity for Access: IV Access Exam Sepsis Risk: No Definite Risk Problem Qualifiers (1) S/P total knee arthroplasty: Laterality: right Qualified Codes: Z96.651 - Presence of right artificial knee joint VELVET WHALEN [facility] Dec 10, 2018 10:18
[2018-12-10] MEDS: DIAZEPAM 5 MG TAB PO PRN (10:24)
[2018-12-10 13:25] VITALS: BP 127/66
--- NOTE | 2018-12-10 14:13 | NUR ---
Physical Therapy Impression PT goals met; pt ready for d/c from a mobility stand point. Physical Therapy Goals 1. Pt to be Min/CGA for bed mobility and supine<>Sit trnsfrs 2. Pt to be SBA/Modified indep for sit to/from stand transfers 3. Pt to ambulate 150' FWW and SBA/modified indep 4. Pt to garrett up/down platform step with FWW or rail and CGA/SBA Patient's Goals
--- NOTE | 2018-12-10 14:36 | NUR ---
pt refusing home oxygen for at night. provider notified.
== END 2018-12-10 07:39 | disposition home or self-care (01) ==
LOC: OR 01:43 → MED 15:45
PROVIDERS: ADMIT Orthopaedic Surgery; ATTEND Orthopaedic Surgery
DX: M17.11 Unilateral primary osteoarthritis, right knee (principal); Z79.82 Long term (current) use of aspirin
CPT/HCPCS: 27447; 36415; 73560; 85610; 86850; 86900; 86901; 97116; 97161; 97530; A9270; C1713; C1776; G0378; J0690; J1100; J2001; J2250; J2405; J2704; J3010; J3370; J3490; J7040; J7050; J7060; J8501